=== PATIENT | male | born 1960 | race Caucasian/White ===

== ENCOUNTER 2020-03-04 15:24 | Outpatient (REF) | payer BC, SELFPAY ==
[2020-03-04 15:57] LABS: Abs Immature Grans 0.01 10^3/uL (0.0-0.06); Absolute Basophil Count 0.02 10^3/uL (0.0-0.2); Absolute Eosinophil Count 0.08 10^3/uL (0.0-0.7); Absolute Lymphocyte Count 1.66 10^3/uL (1.2-3.4); Absolute Monocyte Count 0.49 10^3/uL (0.1-0.8); Absolute Neutrophil Count 3.35 10^3/uL (1.2-6.7); Basophils % 0.4; Eosinophils % 1.4; HGB 16.6 g/dL (13.5-17.5); Immature Grans % 0.2; Lymphocytes % 29.6; MCH 30.9 pg (27.0-33.0); MCHC 34.6 % (32.0-36.0); MCV 89.2 fL (80-95); MPV 11.8 fL (8.0-11.0); Monocytes % 8.7; Neutrophils % 59.7; Nucleated RBC 0 %; Platelet Count 199 10^3/uL (130-400); RBC 5.38 10^6/uL (4.36-5.78); RDW 12.7 % (11.8-14.1); RDW-SD 41.5 fL; WBC 5.61 10^3/uL (4.4-10.8)
[2020-03-04 16:21] LABS: ALT 57 U/L (16-63); AST 22 U/L (15-37); Albumin 4.1 g/dL (3.4-5.0); Alkaline Phosphatase 104 U/L (46-116); Anion Gap 8.1 mmol/L (3-11); BUN 14 mg/dL (7-18); Bilirubin, Total 0.6 mg/dL (0.2-1.0); CO2 27.9 mmol/L (21.0-32.0); CREATININE 1.06 mg/dL (0.70-1.30); Calculated LDL 109 mg/dL (<100); Chloride 102 mmol/L (98-107); Cholesterol 158 mg/dL (<200); Glucose 111 mg/dL (74-106); HDL Cholesterol 19 mg/dL (40-60); Potassium 4.3 mmol/L (3.5-5.1); Sodium 138 mmol/L (136-145); Total Protein 7.4 g/dL (6.4-8.2); Triglyceride 152 mg/dL (<150)
[2020-03-04 18:38] LABS: Hemoglobin A1C 5.4 % (<5.7)
== END 2020-03-04 15:44 ==
LOC: LBN 15:24
PROVIDERS: Visit Provider Nurse Practitioner Family
DX: I10 Essential (primary) hypertension (principal)
CPT/HCPCS: 80053; 80061; 83036; 84443; 85025

== ENCOUNTER 2022-04-14 09:44 | Outpatient (REF) | payer BC, SELFPAY ==
--- NOTE | 2022-04-14 09:23 | SKI_PTH ---
PATIENT: Salvador Chow LOC: [facility] U#:[id number] AGE/SX: 61/M ROOM: RE04/14/[address]: Alejandrina Gallego : 1960 BED: DIS: 04/14/2022 SPEC #: [id number] RECD: 04/14/22 11:51 STATUS: LATHA REQ #: [id number] MARCO: 04/14/22 09:[address]: Alejandrina Gallego DEPT: Surgical Specimen RECD BY: Delma Guido ENTERED: 04/14/22 11:53 SP TYPE: ROLO LEONE DR: Isaac Potter, SOLID TIRE TUBER MACHINE OPERATOR Tissues: 1 - SKIN BIOPSY(SHAVE/PUNCH) Procedures: SKIN LEVEL 4 Comments: [id number]
--- NOTE | 2022-04-14 09:25 | PAPNONF_PTH ---
PATIENT: Salvador Chow LOC: [facility] U#:[id number] AGE/SX: 61/M ROOM: RE04/14/[address]: Alejandrina Gallego : 1960 BED: DIS: 04/14/2022 SPEC #: [id number] RECD: 04/14/22 12:45 STATUS: LATHA REQ #: [id number] MARCO: 04/14/22 09:[address]: Alejandrina Gallego DEPT: [facility] Cytology RECD BY: Delma Guido ENTERED: 04/14/22 12:46 SP TYPE: LISSETT LEONE DR: Isaac Potter, CUSTOMER CONTACT SPECIALIST Tissues: 1 - BODY FLUID CYTO(NOT S/U/N/EM)[facility] Procedures: BODY FLUID CYTO(NOT SPU/UR/NIP/ENDOM)[facility] Comments: [id number] (TOTAL VOLUME = 30 ml, SENT FRESH) (REFRIGERATED)
== END 2022-04-14 09:45 | disposition home or self-care (01) ==
LOC: LBN 09:44
PROVIDERS: PCP Nurse Practitioner Family; Visit Provider Surgery
DX: L90.5 Scar conditions and fibrosis of skin (principal); L98.6 Other infiltrative disorders of the skin and subcutaneous tissue; D48.5 Neoplasm of uncertain behavior of skin
CPT/HCPCS: 88104; 88305; 89051

== ENCOUNTER 2022-04-18 03:06 | Outpatient (CLI) | payer BC, SELFPAY ==
[2022-04-18 15:23] LABS: Abs Immature Grans 0.01 10^3/uL (0.0-0.06); Absolute Basophil Count 0.03 10^3/uL (0.0-0.2); Absolute Eosinophil Count 0.07 10^3/uL (0.0-0.7); Absolute Lymphocyte Count 1.91 10^3/uL (1.2-3.4); Absolute Monocyte Count 0.64 10^3/uL (0.1-0.8); Absolute Neutrophil Count 4.99 10^3/uL (1.2-6.7); Basophils % 0.4; Eosinophils % 0.9; HCT 45.5 % (40.0-50.0); HGB 15.4 g/dL (13.5-17.5); Immature Grans % 0.1; MCH 29.4 pg (27.0-33.0); MCHC 33.8 % (32.0-36.0); MCV 87 fL (80-95); MPV 9.8 fL (8.0-11.0); Monocytes % 8.4; Neutrophils % 65.2; Platelet Count 228 10^3/uL (130-400); RBC 5.24 10^6/uL (4.36-5.78); RDW 12.9 % (11.8-14.1); RDW-SD 40.4 fL; WBC 7.65 10^3/uL (4.4-10.8)
[2022-04-18 15:38] LABS: ALT 33 U/L (16-63); AST 20 U/L (15-37); Albumin 4.2 g/dL (3.4-5.0); Alkaline Phosphatase 134 U/L (46-116); Anion Gap 6.5 mmol/L (3-11); BUN 14 mg/dL (7-18); Bilirubin, Total 0.6 mg/dL (0.2-1.0); CO2 28.5 mmol/L (21.0-32.0); CREATININE 0.9 mg/dL (0.70-1.30); Calcium 9.1 mg/dL (8.5-10.1); Chloride 102 mmol/L (98-107); Estimated GFR 97.17 (mL/min/1.73m2); Glucose 106 mg/dL (74-106); Sodium 137 mmol/L (136-145); Total Protein 7.9 g/dL (6.4-8.2)
[2022-04-18 15:39] LABS: LDH 164 U/L (85-227)
[2022-04-18 15:44] LABS: C-Reactive Protein < 0.05 mg/dL (0.0-0.3)
[2022-04-18 16:16] LABS: Calculated LDL 119 mg/dL (<100); Cholesterol 169 mg/dL (<200); HDL Cholesterol 31 mg/dL (40-60); Triglyceride 96 mg/dL (<150)
== END 2022-04-18 03:07 | disposition home or self-care (01) ==
LOC: LBO 03:06
PROVIDERS: PCP Nurse Practitioner Family; Visit Provider Surgery
DX: I10 Essential (primary) hypertension (principal); E78.00 Pure hypercholesterolemia, unspecified; D49.9 Neoplasm of unspecified behavior of unspecified site; M79.89 Other specified soft tissue disorders; L98.8 Other specified disorders of the skin and subcutaneous tissue
CPT/HCPCS: 36415; 80053; 80061; 83615; 85025; 86140

== ENCOUNTER 2022-04-28 09:28 | Outpatient (REF) | payer BC, SELFPAY ==
--- NOTE | 2022-04-28 09:20 | SKI_PTH ---
PATIENT: Salvador Chow LOC: [facility] U#:[id number] AGE/SX: 61/M ROOM: RE04/28/[address]: Alejandrina Gallego : 1960 BED: DIS: 04/28/2022 SPEC #: [id number] RECD: 04/28/22 12:07 STATUS: LATHA REJamie #: [id number] MARCO: 04/28/22 09:[address]: Alejandrina Gallego DEPT: Surgical Specimen RECD BY: Delma Guido ENTERED: 04/28/22 12:08 SP TYPE: ROLO LEONE DR: Isaac Potter, REEL WORKER Tissues: 1 - SKIN BIOPSY(SHAVE/PUNCH) Procedures: SKIN LEVEL 4 Comments: [id number]
== END 2022-04-28 09:29 | disposition home or self-care (01) ==
LOC: LBN 09:28
PROVIDERS: PCP Nurse Practitioner Family; Visit Provider Surgery
DX: C44.319 Basal cell carcinoma of skin of other parts of face (principal)
CPT/HCPCS: 88305

== ENCOUNTER 2022-05-05 10:11 | Outpatient (REF) | payer BC, SELFPAY ==
--- NOTE | 2022-05-05 10:05 | SKI_PTH ---
PATIENT: Salvador Chow LOC: [facility] U#:[id number] AGE/SX: 61/M ROOM: RE05/05/[address]: Alejandrina Gallego : 1960 BED: DIS: 05/05/2022 SPEC #: [id number] RECD: 05/05/22 12:50 STATUS: LATHA REQ #: [id number] MARCO: 05/05/22 10:[address]: Alejandrina Gallego DEPT: Surgical Specimen RECD BY: Delma Guido ENTERED: 05/05/22 12:50 SP TYPE: ROLO LEONE DR: Isaac Potter, WHITE SHOE EXAMINER Tissues: 1 - SKIN BIOPSY(SHAVE/PUNCH) Procedures: SKIN LEVEL 4 Comments: [id number]
== END 2022-05-05 10:12 | disposition home or self-care (01) ==
LOC: LBN 10:11
PROVIDERS: PCP Nurse Practitioner Family; Visit Provider Surgery
DX: D48.5 Neoplasm of uncertain behavior of skin (principal); L90.5 Scar conditions and fibrosis of skin
CPT/HCPCS: 88305

== ENCOUNTER 2022-05-15 00:16 | Outpatient (CLI) | payer BC, SELFPAY ==
--- NOTE | 2022-05-15 06:45 | DI.CT_ITS ---
Exam(s) CT CHEST W EXAM: CT CHEST W CLINICAL HISTORY: soft tissue mass on back,lesion,tumor,m79.89,l98.9,d49,9 TECHNIQUE: Imaging Protocol: Axial computed tomography images with coronal and sagittal reformatted images were created and reviewed CONTRAST MATERIAL: Intravenous: Omnipaque 350 Contrast volume:70 ml. COMPARISON: No exams were available for comparison FINDINGS: Pulmonary parenchyma: No consolidation. No dominant measurable mass. Tracheobronchial tree: No bronchiectasis or mucous plugging. Mediastinum and Filomena: No dominant adenopathy or fluid collection. Pleura: No effusion or pneumothorax. Heart: The heart is not dilated. No coronary artery calcifications are seen. Aorta: Thoracic aorta non-dilated. Upper abdomen: Unremarkable. Bones: Degenerative changes. Soft tissues: 4.2 by 6.8 x 7.8 cm heterogeneous partially enhancing mass which appears to be rising f rom the skin. There may be some invasion of the adjacent subcutaneous fat. No definite muscular inv asion. IMPRESSION: Large soft tissue mass appears to be rising from the skin of the upper back. The appearance is suspi cious for malignancy. No evidence of metastatic disease in the chest. RADIATION DOSE DELIVERED: 518.19mGy.cm Total DLP DATA REPOSITORY: All CT scans at this facility are submitted to the National Radiology Data Registry (NRDR) Dose Index Registry (DIR) with the [employer] ([employer]). RADIATION OPTIMIZATION: All CT scans at this facility use at least one of these dose optimization te chniques: automated exposure control; mA and/or kV adjustment per patient size (includes targeted exa ms where dose is matched to clinical indication); or iterative reconstruction.
[2022-05-15] MEDS: Normal Saline Flush 10 ML SYR IVP ×2 (08:09→08:43)
--- NOTE | 2022-05-15 08:30 | DI.MRI_ITS ---
Exam(s) MR BRAIN WO/W EXAM: MR BRAIN WO/W CLINICAL HISTORY: soft tissue mass back/forehead/nose,m79.89,l98.9. TECHNIQUE: Multiplanar multisequence MRI of the brain was performed. CONTRAST MATERIAL: IV Contrast: 14 ML of Dotarem contrast administered. COMPARISON: CT CT CHEST W from 05/15/2022 FINDINGS: VENTRICLES AND EXTRA AXIAL SPACES: Normal in size and morphology for the patient's age. HEMORRHAGE: None. CEREBRAL PARENCHYMA: No focus of restricted diffusion to suggest acute infarct. No space-occupying le isis identified. MIDLINE SHIFT: None. BRAINSTEM/CEREBELLUM: Normal. ENHANCEMENT: No suspicious enhancement identified. VISUALIZED PARANASAL SINUSES/MASTOIDS: Small mucous retention cyst versus polyp medial wall right max illary sinus. OTHER FINDINGS: Flat lesion of the forehead scalp measuring 12 millimeters transverse by 2 millimeter s in depth with signal intensity of adjacent scalp. IMPRESSION: Unremarkable MRI of the brain. Anterior scalp lesion with signal similar to adjacent skin. No suspic ious findings. DATA REPOSITORY:
[2022-05-15] MEDS: Normal Saline - Diluent 50 ML VIAL IJ (08:42)
[2022-05-15] MEDS: Omnipaque 350 MG/ML 500 ML BTL-Imaging package IJ (08:43)
== END 2022-05-15 00:36 ==
LOC: DI 00:16
PROVIDERS: PCP Nurse Practitioner Family; Visit Provider Surgery
DX: E78.00 Pure hypercholesterolemia, unspecified; I10 Essential (primary) hypertension; L98.9 Disorder of the skin and subcutaneous tissue, unspecified; M79.89 Other specified soft tissue disorders
CPT/HCPCS: 70553; 71260

== ENCOUNTER 2024-05-19 02:06 | Outpatient (CLI) | payer BC, SELFPAY ==
[2024-05-19 08:37] LABS: Hemoglobin A1C 5.4 % (<5.7)
[2024-05-19 08:55] LABS: Calculated LDL 117 mg/dL (<100); Cholesterol 165 mg/dL (<200); HDL Cholesterol 31 mg/dL (40-60); Triglyceride 86 mg/dL (<150)
[2024-05-19 17:20] LABS: PSA, Screening 0.5 ng/mL (<=4.5)
== END 2024-05-19 02:07 | disposition home or self-care (01) ==
LOC: LBO 02:06
PROVIDERS: PCP Nurse Practitioner Family; Visit Provider Nurse Practitioner Family
DX: Z13.220 Encounter for screening for lipoid disorders (principal); Z12.5 Encounter for screening for malignant neoplasm of prostate; Z13.1 Encounter for screening for diabetes mellitus
CPT/HCPCS: 36415; 80061; 84153; 83036